=== PATIENT | male | born 1990 | race Caucasian/White ===

== ENCOUNTER 2016-10-22 16:04 | Emergency (ER) | payer OTHER ==
--- NOTE | 2016-10-22 16:10 | EDM.PDOC ---
ED HPI GENERAL MEDICAL PROBLEM - General Chief Complaint: Abdominal Pain Stated Complaint: N&V, SEVERE STOMACH PAINS Time Seen by Provider: 10/22/16 16:10 Source of Information: Reports: Patient - History of Present Illness INITIAL COMMENTS - FREE TEXT/NARRATIVE: HISTORY AND PHYSICAL: History of present illness: [] Patient presents with abdominal pain he states is diffuse 01/02 associated with vomiting too numerous to count, he states there were blood streaks in the vomit after drinking alcohol over the weekend Review of systems: As per history of present illness and below otherwise all systems reviewed and negative. Past medical history: As per history of present illness and as reviewed below otherwise noncontributory. Surgical history: As per history of present illness and as reviewed below otherwise noncontributory. Social history: No reported history of drug or alcohol abuse. Family history: As per history of present illness and as reviewed below otherwise noncontributory. Physical exam: HEENT: Atraumatic, normocephalic, pupils reactive, negative for conjunctival pallor or scleral icterus, mucous membranes moist, throat clear, neck supple, nontender, trachea midline. Lungs: Clear to auscultation, breath sounds equal bilaterally, chest nontender. Heart: S1S2, regular, negative for clicks, rubs, or JVD. Abdomen: Soft, nondistended, nontender. Negative for masses or hepatosplenomegaly. Negative for costovertebral tenderness. Pelvis: Stable nontender. Genitourinary: Deferred. Rectal: Deferred. Extremities: Atraumatic, negative for cords or calf pain. Neurovascular unremarkable. Neuro: Awake, alert, oriented. Cranial nerves II through XII unremarkable. Cerebellum unremarkable. Motor and sensory unremarkable throughout. Exam nonfocal. Diagnostics: [] Lab as below Therapeutics: [] Protonix 80 mg IV 1 L normal saline bolus Zofran 8 mg IV Zofran 8 mg ODT every 8 when necessary #30 no refill Patient offered admission he refuses feels much better and desires to leave Impression: [] Alcohol gastritis Stridor and as Definitive disposition and diagnosis as appropriate pending reevaluation and review of above. abdomen Pain Score (Numeric/FACES): 8 - Related Data Allergies Allergy/AdvReac Type Severity Reaction Status Date / Time No Known Allergies Allergy Verified 10/22/16 16:12 Home Meds: Home Meds . [No Known Home Meds] 10/22/16 [History] Past Medical History HEENT History: Reports: Impaired Vision Cardiovascular History: Reports: None Respiratory History: Reports: None Gastrointestinal History: Reports: None Genitourinary History: Reports: None Musculoskeletal History: Reports: None Neurological History: Reports: None Psychiatric History: Reports: ADHD Endocrine/Metabolic History: Reports: None Hematologic History: Reports: None Immunologic History: Reports: None Oncologic (Cancer) History: Reports: None Dermatologic History: Reports: None - Infectious Disease History Infectious Disease History: Reports: Chicken Pox - Past Surgical History Other Surgical History Comment: Denies Social & Family History - Family History Family Medical History: Unobtainable - Tobacco Use Smoking Status *Q: Current Every Day Smoker Years of Tobacco use: 5 Packs/Tins Daily: 1 - Alcohol Use Days Per Week of Alcohol Use: 7 Number of Drinks Per Day: 12 Total Drinks Per Week: 84 - Recreational Drug Use Recreational Drug Use: Yes Drug Use in Last 12 Months: Yes Recreational Drug Type: Reports: Marijuana/Hashish Recreational Drug Use Frequency: Rarely ED ROS GENERAL - Review of Systems Review Of Systems: ROS reveals no pertinent complaints other than HPI. ED EXAM, GENERAL - Physical Exam Exam: See Below Course - Vital Signs Last Recorded V/S: Last Vital Signs Temp 37.3 C 10/22/16 17:39 Pulse 112 H 10/22/16 17:39 Resp 18 10/22/16 17:39 BP 122/59 L 10/22/16 17:39 Pulse Ox 98 10/22/16 17:39 - Orders/Labs/Meds Orders: Active Orders 24 hr Category Date Time Status Abdomen Pelvis w Cont [CT] Stat Exams 10/22/16 16:18 Taken Labs: Laboratory Tests 10/22/16 10/22/16 10/22/16 Range/Units 16:18 16:18 17:18 WBC 29.23 H (4.0-11.0) K/uL RBC 5.70 (4.50-5.90) M/uL Hgb 18.1 H (13.0-17.0) g/dL Hct 51.7 H (38.0-50.0) % MCV 90.7 (80.0-98.0) fL MCH 31.8 (27.0-32.0) pg MCHC 35.0 (31.0-37.0) g/dL RDW Std Deviation 45.4 (28.0-62.0) fl RDW Coeff of Otilia 14 (11.0-15.0) % Plt Count 394 (150-400) K/uL MPV 10.10 (7.40-12.00) fL Add Manual Diff YES Neutrophils % (Manual) 84 H (48.0-80.0) % Lymphocytes % (Manual) 10 L (16.0-40.0) % Monocytes % (Manual) 6 (0.0-15.0) % Nucleated RBC % 0.0 /100WBC Absolute Seg Neuts 24.6 Lymphocytes # (Manual) 2.9 Monocytes # (Manual) 1.8 Nucleated RBCs # 0 K/uL Sodium 143 (136-146) mmol/L Potassium 3.9 (3.5-5.1) mmol/L Chloride 102 (98-110) mmol/L Carbon Dioxide 20 L (21-31) mmol/L BUN 10 (6.0-23.0) mg/dL Creatinine 0.9 (0.6-1.5) mg/dL Est Cr Clr Drug Dosing 99.93 mL/min Estimated GFR (MDRD) > 60.0 ml/min Glucose 128 H (60-110) mg/dL Calcium 10.2 (8.8-10.8) mg/dL Total Bilirubin 1.1 (0.1-1.5) mg/dL AST 37 (5-40) IU/L ALT 42 (8-54) IU/L Alkaline Phosphatase 69 (40-150) Total Protein 8.5 H (6.0-8.0) g/dL Albumin 5.4 H (3.5-5.0) g/dL Globulin 3.1 (2.0-3.5) g/dL Albumin/Globulin Ratio 1.7 (1.3-2.8) Amylase 103 H (10-90) U/L Lipase 14 (7-80) U/L Urine Color YELLOW Urine Appearance CLEAR Urine pH 7.0 (5.0-8.0) Ur Specific [place] 1.025 (1.001-1.035) Urine Protein 100 (NEGATIVE) mg/dL Urine Glucose (UA) NEGATIVE (NEGATIVE) mg/dL Urine Ketones >=80 (NEGATIVE) mg/dL Urine Occult Blood NEGATIVE (NEGATIVE) Urine Nitrite NEGATIVE (NEGATIVE) Urine Bilirubin NEGATIVE (NEGATIVE) Urine Urobilinogen 0.2 (<2.0) EU/dL Ur Leukocyte Esterase NEGATIVE (NEGATIVE) Urine RBC 0-2 (0-2/HPF) Urine WBC 0-1 (0-5/HPF) Ur Epithelial Cells RARE (NONE-FEW) Urine Bacteria FEW (NEGATIVE) Urine Mucus MODERATE (NONE-MOD) Meds: Medications Discontinued Medications Generic Name Dose Route Start Last Admin Trade Name Freq PRN Reason Stop Dose Admin Sodium Chloride 1,000 mls @ 999 mls/hr 10/22/16 16:14 10/22/16 16:28 Normal Saline IV 10/22/16 17:14 999 mls/hr STAT ONE Administration Iopamidol 100 ml 10/22/16 17:04 10/22/16 17:05 Isovue Multipack-370 (76%) IVPUSH 10/22/16 17:05 100 ml ONETIME STA Administration Ketorolac Tromethamine 30 mg 10/22/16 16:14 10/22/16 16:29 Toradol IVPUSH 10/22/16 16:15 30 mg ONETIME ONE Administration Ondansetron HCl 8 mg 10/22/16 16:14 10/22/16 16:29 Zofran IVPUSH 10/22/16 16:15 8 mg ONETIME ONE Administration Pantoprazole Sodium 80 mg 10/22/16 16:18 10/22/16 16:29 Protonix Iv IVPUSH 10/22/16 16:19 80 mg .BOLUS ONE Administration Departure - Departure Time of Disposition: 19:04 Disposition: Home, Self-Care 01 Condition: fair Clinical Impression: Gastroenteritis - Discharge Information Forms: ED Department Discharge Additional Instructions: Medication as prescribed Return if symptoms persist or worsen Followup with primary care in 2 weeks The following information is given to patients seen in the emergency department who are being discharged to home. This information is to outline your options for follow-up care. We provide all patients seen in our emergency department with a follow-up referral. The need for follow-up, as well as the timing and circumstances, are variable depending upon the specifics of your emergency department visit. If you don't have a primary care physician on staff, we will provide you with a referral. We always advise you to contact your personal physician following an emergency department visit to inform them of the circumstance of the visit and for follow-up with them and/or the need for any referrals to a consulting specialist. The emergency department will also refer you to a specialist when appropriate. This referral assures that you have the opportunity for follow-up care with a specialist. All of these measure are taken in an effort to provide you with optimal care, which includes your follow-up. Under all circumstances we always encourage you to contact your private physician who remains a resource for coordinating your care. When calling for follow-up care, please make the office aware that this follow-up is from your recent emergency room visit. If for any reason you are refused follow-up, please contact the [facility] emergency department at and asked to speak to the emergency department charge nurse. - My Orders Last 24 Hours: My Active Orders 10/22/16 16:18 Abdomen Pelvis w Cont [CT] Stat - Assessment/Plan Last 24 Hours: My Active Orders 10/22/16 16:18 Abdomen Pelvis w Cont [CT] Stat
[2016-10-22] MEDS ORDERED: Ondansetron 4 MG/2 ML SDV IVPUSH ONE (16:14)
[2016-10-22] MEDS ORDERED: Ketorolac 30 MG/ML SDV IVPUSH ONE (16:14)
[2016-10-22] MEDS ORDERED: Sodium Chloride 0.9% 1,000 ML IV ONE (16:14)
[2016-10-22] MEDS ORDERED: Pantoprazole 40 MG Vial IVPUSH ONE (16:18)
[2016-10-22 16:47] LABS: CHLORIDE,CL 102 mmol/L (98-110); SODIUM,NA 143 mmol/L (136-146)
[2016-10-22] MEDS ORDERED: Iopamidol 755 MG/ML 500 ML Multipack Bottle IVPUSH STA (17:04)
[2016-10-22 17:39] VITALS: BP 122/59
--- NOTE | 2016-10-23 10:11 | CT ---
EXAM DATE: 10/22/16 PATIENT'S AGE: 26 Patient: SUBHA SHAW Facility: [place], [place] Site . Site : 1990 Study: CT Abdomen/Pelvis [id number]/30/2017 5:44:40 PM Ordering Physician: Bob Simon Final Report: INDICATION: Abdominal pain and burning. Nausea and vomiting occasionally, especially after drinking water. Technique: Axial intravenously infused CT cuts were performed from above the diaphragm to the inferior pubic rami. Findings: The appendix is not inflamed. The colon is decompressed and there is mild mucosal thickening of the colon although this appears be accentuated due to the lack of colonic distention. The small bowel appears normal. The liver, spleen, pancreas, adrenals and kidneys appear normal. There are no enlarged retroperitoneal or mesenteric lymph nodes. There is no free intraperitoneal air or fluid. The urinary bladder, seminal vesicles and prostate gland appear normal. There are no enlarged iliac or inguinal lymph nodes. There no nodules or masses at the lung bases. Impression are: The colonic mucosa may be somewhat thickened although the findings would be accentuated due to lack of colonic distention. There may be a mild colitis present. Please note that all CT scans at this facility use dose modulation, iterative reconstruction, and/or weight-based dosing when appropriate to reduce radiation dose to as low as reasonably achievable. Dictated by Austin Jj MD @ Oct 22 2016 6:24PM (Electronic Signature) Report Signed by Proxy. [facility]
== END 2016-10-22 19:20 | disposition home or self-care (01) ==
LOC: MW.ED 16:04
DX: K52.9 Noninfective gastroenteritis and colitis, unspecified (principal); F17.210 Nicotine dependence, cigarettes, uncomplicated
CPT/HCPCS: 36415; 74177; 80053; 81001; 82150; 83690; 85025; 96361; 96374; 96375; 99284; C9113; J1885; J2405; J7040; Q9967

== ENCOUNTER 2017-02-07 14:51 | Inpatient (IN) | payer OTHER, SELFPAY ==
[2017-02-07] MEDS ORDERED: Ondansetron 4 MG/2 ML SDV IVPUSH ONE (15:25)
[2017-02-07] MEDS ORDERED: Alum Hydrox/Mag Hydrox/Simeth 15 ML, Metoclopramide 5 MG, Lidocaine 2% 5 ML PO ONE ×3 (15:25)
[2017-02-07] MEDS ORDERED: Pantoprazole 40 MG Vial IVPUSH ONE (15:25)
[2017-02-07] MEDS ORDERED: Sodium Chloride 0.9% 1,000 ML IV ONE ×2 (15:25→19:48)
--- NOTE | 2017-02-07 15:29 | EDM.PDOC ---
ED HPI GENERAL MEDICAL PROBLEM - General Chief Complaint: Gastrointestinal Problem Stated Complaint: VOMITING BLOOD Time Seen by Provider: 02/07/17 15:15 Source of Information: Reports: Patient History Limitations: Reports: No Limitations - History of Present Illness INITIAL COMMENTS - FREE TEXT/NARRATIVE: HISTORY AND PHYSICAL: History of present illness: [Patient is brought to the emergency room by his mother. He has been experiencing generalized abdominal pain, vomiting, and diarrhea which began this morning. Patient has a history of heavily alcohol use. He has a history of gastritis that is induced by heavy alcohol use, was previously seen in the ER for the same symptoms in January 2016 and September 2016. States that he drank a large quantity of whiskey yesterday, too numerous to count. Emesis has been blood-streaked. No blood in his stools. No difficulty urinating. Patient currently lives with his mother. No fever or chills. No headaches or fainting. Denies sore throat runny nose and earaches. No chest pain shortness of breath or difficulty breathing. No cough. No muscle aches or joint pain. Review of systems: As per history of present illness and below otherwise all systems reviewed and negative. Past medical history: As per history of present illness and as reviewed below otherwise noncontributory. Surgical history: As per history of present illness and as reviewed below otherwise noncontributory. Social history: No reported history of drug or alcohol abuse. Family history: As per history of present illness and as reviewed below otherwise noncontributory. Physical exam: Gen.: Is actively vomiting upon presentation to the ER. HEENT: Atraumatic, normocephalic. Oral mucous membranes are pink and mildly dry. Neck supple no lymphadenopathy Lungs: Clear to auscultation, breath sounds equal bilaterally. Heart: S1S2, regular rate and rhythm. No murmur gallop click or rub. Abdomen: Bowel sounds are normoactive throughout. Abdomen is soft and nondistended. Mild generalized tenderness with palpation. Negative for masses guarding and rebound. Negative for costovertebral tenderness. Pelvis: Stable nontender. Genitourinary: Deferred. Rectal: Deferred. Extremities: Atraumatic, negative for cords or calf pain. No swelling or cyanosis to feet or lower legs. Neurovascular unremarkable. Neuro: Awake, alert, oriented. Motor and sensory unremarkable throughout. Exam nonfocal. Diagnostics: [CBC, CMP, amylase, lipase, magnesium, blood cultures 2, lactic acid, urinalysis, urine culture, CT abdomen and pelvis.] Therapeutics: [GI cocktail, Zofran 8 mg IV, 2 L normal saline, Protonix 80 mg IV, phenergan 25mg IM] Impression: Gastritis Leukocytosis Nausea and vomiting] Plan: [Patient's condition and lab results are reviewed with Dr. Celio Hanley who agrees to accept for inpatient treatment. Zosyn 3.375 mg IV is started in the ER prior to transfer. White count 31.7, lactic acid 3.1, amylase 110. Patient and his mother in agreement with hospitalization. All questions are answered and concerns are addressed prior to transfer.] Definitive disposition and diagnosis as appropriate pending reevaluation and review of above. Lower Abdomen Pain Score (Numeric/FACES): 8 - Related Data Allergies Allergy/AdvReac Type Severity Reaction Status Date / Time No Known Allergies Allergy Verified 02/07/17 15:02 Home Meds: Home Meds . [No Known Home Meds] 10/22/16 [History] Past Medical History - Past Health History Medical/Surgical History: Denies Medical/Surgical History HEENT History: Reports: Impaired Vision Cardiovascular History: Reports: None Respiratory History: Reports: None Gastrointestinal History: Reports: None Genitourinary History: Reports: None Musculoskeletal History: Reports: None Neurological History: Reports: None Psychiatric History: Reports: ADHD Endocrine/Metabolic History: Reports: None Hematologic History: Reports: None Immunologic History: Reports: None Oncologic (Cancer) History: Reports: None Dermatologic History: Reports: None - Infectious Disease History Infectious Disease History: Reports: Chicken Pox - Past Surgical History Head Surgeries/Procedures: Reports: None Social & Family History - Family History Family Medical History: Unobtainable - Tobacco Use Smoking Status *Q: Current Some Day Smoker Years of Tobacco use: 9 Packs/Tins Daily: 0.5 Used Tobacco, but Quit: No Second Hand Smoke Exposure: No - Caffeine Use Caffeine Use: Reports: Energy Drinks Caffeine Use Comment: 1 cup daily - Alcohol Use Days Per Week of Alcohol Use: 1 Number of Drinks Per Day: 12 Total Drinks Per Week: 12 - Recreational Drug Use Recreational Drug Use: No Drug Use in Last 12 Months: Yes Recreational Drug Type: Reports: Marijuana/Hashish Recreational Drug Use Frequency: Rarely ED ROS GENERAL - Review of Systems Review Of Systems: ROS reveals no pertinent complaints other than HPI. ED EXAM, GI/ABD - Physical Exam Exam: See Below Course - Vital Signs Last Recorded V/S: Last Vital Signs Temp 98.1 F 02/07/17 20:00 Pulse 93 02/07/17 20:00 Resp 16 02/07/17 20:00 BP 124/82 02/07/17 20:00 Pulse Ox 98 02/07/17 20:00 - Orders/Labs/Meds Orders: Active Orders 24 hr Category Date Time Status Abdomen Pelvis w Cont [CT] Stat Exams 02/07/17 16:51 Taken CULTURE BLOOD [BC] Stat Lab 02/07/17 19:23 Received CULTURE BLOOD [BC] Stat Lab 02/07/17 19:23 Received CULTURE URINE [RM] Stat Lab 02/07/17 20:40 Received Blood Culture x2 Reflex Set [OM.PC] Stat Oth 02/07/17 18:49 Ordered Medication Orders Multivitamins/Minerals 10 ml/Thiamine HCl 100 mg/ Folic Acid 1 mg/ Sodium Chloride 1,011.2 mls @ 150 mls/hr IV DAILY ONE Stop: 02/08/17 02:45 Last Admin: 02/07/17 20:46 Dose: 150 mls/hr Pantoprazole Sodium 40 mg/ (Sodium Chloride) 10 mls @ 300 mls/hr IVPUSH BID GEORGE Piperacillin Sod/Tazobactam (Sod 3.375 gm/ Sodium Chloride) 50 mls @ 100 mls/ hr IV Q6H GEORGE Sodium Chloride (Normal Saline) 1,000 mls @ 125 mls/hr IV ASDIRECTED GEORGE Lorazepam (Ativan) 1 mg IVPUSH Q4H PRN; Protocol PRN Reason: Other Ondansetron HCl (Zofran) 4 mg IVPUSH Q4H PRN PRN Reason: Nausea Labs: Laboratory Tests 02/07/17 02/07/17 02/07/17 Range/Units 16:10 16:10 19:23 WBC 31.70 H (4.0-11.0) K/uL RBC 5.92 H (4.50-5.90) M/uL Hgb 18.7 H (13.0-17.0) g/dL Hct 52.5 H (38.0-50.0) % MCV 88.7 (80.0-98.0) fL MCH 31.6 (27.0-32.0) pg MCHC 35.6 (31.0-37.0) g/dL RDW Std Deviation 43.5 (28.0-62.0) fl RDW Coeff of Otilia 13 (11.0-15.0) % Plt Count 389 (150-400) K/uL MPV 10.10 (7.40-12.00) fL Add Manual Diff YES Neutrophils % (Manual) 89 H (48.0-80.0) % Band Neutrophils % 3 % Lymphocytes % (Manual) 5 L (16.0-40.0) % Monocytes % (Manual) 3 (0.0-15.0) % Nucleated RBC % 0.0 /100WBC Absolute Seg Neuts 28.2 Band Neutrophils # 1.0 Lymphocytes # (Manual) 1.6 Monocytes # (Manual) 1.0 Nucleated RBCs # 0 K/uL Lactate 3.1 H (0.20-2.00) mmol/L Sodium 145 (136-146) mmol/L Potassium 3.6 (3.5-5.1) mmol/L Chloride 101 (98-110) mmol/L Carbon Dioxide 25 (21-31) mmol/L BUN 8 (6.0-23.0) mg/dL Creatinine 1.0 (0.6-1.5) mg/dL Est Cr Clr Drug Dosing 101.02 mL/min Estimated GFR (MDRD) > 60.0 ml/min Glucose 135 H (60-110) mg/dL Calcium 10.7 (8.8-10.8) mg/dL Magnesium 1.6 (1.5-2.3) mEq/L Total Bilirubin 1.1 (0.1-1.5) mg/dL AST 28 (5-40) IU/L ALT 28 (8-54) IU/L Alkaline Phosphatase 86 (40-150) Total Protein 9.0 H (6.0-8.0) g/dL Albumin 5.3 H (3.5-5.0) g/dL Globulin 3.7 H (2.0-3.5) g/dL Albumin/Globulin Ratio 1.4 (1.3-2.8) Amylase 110 H (10-90) U/L Lipase 9 (7-80) U/L Meds: Medications Generic Name Dose Route Start Last Admin Trade Name Joseq PRN Reason Stop Dose Admin Multivitamins/Minerals 10 ml/ 1,011.2 mls @ 150 mls/hr 02/07/17 20:01 20:46 Thiamine HCl 100 mg/ Folic IV 02/08/17 02:45 150 mls/hr Acid 1 mg/ Sodium Chloride DAILY ONE Administration Pantoprazole Sodium 40 mg/ 10 mls @ 300 mls/hr 02/08/17 09:00 Sodium Chloride IVPUSH BID GEORGE Piperacillin Sod/Tazobactam 50 mls @ 100 mls/hr 02/08/17 02:00 Sod 3.375 gm/ Sodium Chloride IV Q6H GEORGE Sodium Chloride 1,000 mls @ 125 mls/hr 02/07/17 20:00 Normal Saline IV ASDIRECTED GEORGE Lorazepam 1 mg 02/07/17 20:04 Ativan IVPUSH Q4H PRN Other Protocol Ondansetron HCl 4 mg 02/07/17 19:58 Zofran IVPUSH Q4H PRN Nausea Discontinued Medications Generic Name Dose Route Start Last Admin Trade Name Juanita PRN Reason Stop Dose Admin Al Hydroxide/Mg Hydroxide 15 0 ml 02/07/17 15:25 02/07/17 16:19 ml/ Metoclopramide HCl 5 mg/ PO 02/07/17 15:26 1 each Lidocaine HCl 5 ml ONETIME ONE Administration Sodium Chloride 1,000 mls @ 999 mls/hr 02/07/17 15:25 02/07/17 16:08 Normal Saline IV 02/07/17 16:25 999 mls/hr STAT ONE Administration Sodium Chloride 1,000 mls @ 999 mls/hr 02/07/17 19:48 02/07/17 19:57 Normal Saline IV 02/07/17 20:48 999 mls/hr .BOLUS ONE Administration Piperacillin Sod/Tazobactam 50 mls @ 100 mls/hr 02/07/17 19:49 02/07/17 19:57 Sod 3.375 gm/ Sodium Chloride IV 02/07/17 20:18 100 mls/hr ONETIME ONE Administration Iopamidol 80 ml 02/07/17 18:32 02/07/17 18:32 Isovue-370 (76%) IVPUSH 02/07/17 18:33 80 ml ONETIME STA Administration Ondansetron HCl 8 mg 02/07/17 15:25 02/07/17 16:08 Zofran IVPUSH 02/07/17 15:26 8 mg ONETIME ONE Administration Pantoprazole Sodium 80 mg 02/07/17 15:25 02/07/17 16:19 Protonix Iv IVPUSH 02/07/17 15:26 80 mg .BOLUS ONE Administration Promethazine HCl 25 mg 02/07/17 17:30 02/07/17 17:52 Phenergan IM 02/07/17 17:31 25 mg ONETIME ONE Administration Departure - Departure Time of Disposition: 19:25 Disposition: Admitted As Inpatient 66 Clinical Impression: Vomiting, Gastritis, Leukocytosis - Discharge Information - My Orders Last 24 Hours: My Active Orders 02/07/17 16:51 Abdomen Pelvis w Cont [CT] Stat - Assessment/Plan Last 24 Hours: My Active Orders 02/07/17 16:51 Abdomen Pelvis w Cont [CT] Stat
[2017-02-07 16:46] LABS: CHLORIDE,CL 101 mmol/L (98-110); SODIUM,NA 145 mmol/L (136-146)
[2017-02-07] MEDS ORDERED: Promethazine 25 MG/ML SDV IM ONE (17:30)
[2017-02-07] MEDS ORDERED: Iopamidol 755 Mg/ML 100 ML Bottle IVPUSH STA (18:32)
[2017-02-07] MEDS ORDERED: Piperacillin/Tazobactam 3.375 GM in Sodium Chloride 0.9% 50 ML IV ONE (19:49)
[2017-02-07] MEDS ORDERED: Ondansetron 4 MG/2 ML SDV IVPUSH PRN (19:58)
[2017-02-07] MEDS ORDERED: MVI, Adult with Vitamin K 10 ML, Thiamine 100 MG, Folic Acid 1 MG in Sodium Chloride 0.... IV ONE ×4 (20:01)
[2017-02-07] MEDS ORDERED: LORazepam 2 MG/ML MDV IVPUSH PRN (20:04)
--- NOTE | 2017-02-07 20:10 | PCM.HP ---
H&P History of Present Illness - General Date of Service: 02/07/17 Admit Problem/Dx: Admission Diagnosis/Problem Admission Diagnosis/Problem Gastritis Source of Information: Patient, Provider, RN - History of Present Illness Initial Comments - Free Text/Narative: He presented to the ER with vomiting post alcohol binge drinking. He had streaks of blood in vomit earlier today. He denies any pain. he denies fever. Lower Abdomen Pain Score (Numeric/FACES): 8 - Related Data Allergies/Adverse Reactions: Allergies Allergy/AdvReac Type Severity Reaction Status Date / Time No Known Allergies Allergy Verified 02/07/17 15:02 Home Medications: Home Meds . [No Known Home Meds] 10/22/16 [History] Past Medical History - Past Health History Medical/Surgical History: Denies Medical/Surgical History HEENT History: Reports: Impaired Vision Cardiovascular History: Reports: None Respiratory History: Reports: None Gastrointestinal History: Reports: None Genitourinary History: Reports: None Musculoskeletal History: Reports: None Neurological History: Reports: None Psychiatric History: Reports: ADHD Endocrine/Metabolic History: Reports: None Hematologic History: Reports: None Immunologic History: Reports: None Oncologic (Cancer) History: Reports: None Dermatologic History: Reports: None - Infectious Disease History Infectious Disease History: Reports: Chicken Pox - Past Surgical History Head Surgeries/Procedures: Reports: None Social & Family History - Family History Family Medical History: Unobtainable - Tobacco Use Smoking Status *Q: Current Some Day Smoker Years of Tobacco use: 9 Packs/Tins Daily: 0.5 Used Tobacco, but Quit: No Second Hand Smoke Exposure: No - Caffeine Use Caffeine Use: Reports: Energy Drinks Caffeine Use Comment: 1 cup daily - Alcohol Use Days Per Week of Alcohol Use: 3 Alcohol Use Comment: He states that he does not drink alcohol daily but he drinks heavy about three days per week. - Recreational Drug Use Recreational Drug Use: No Drug Use in Last 12 Months: Yes Recreational Drug Type: Reports: Marijuana/Hashish Recreational Drug Use Frequency: Rarely H&P Review of Systems - Review of Systems: Review Of Systems: See Below General: Denies: Fever, Chills HEENT: Denies: Ear Pain, Headaches, Sore Throat Pulmonary: Denies: Shortness of Breath, Cough, Sputum Cardiovascular: Denies: Chest Pain, Edema Gastrointestinal: Reports: Hematemesis (as per hpi). Denies: Black Stool, Bloody Stool Genitourinary: Denies: Dysuria, Hematuria Psychiatric: Denies: Confusion Exam - Exam Exam: See Below - Vital Signs Vital Signs: Last Vital Signs Temp 96.3 F 02/07/17 15:12 Pulse 99 02/07/17 15:12 Resp 18 02/07/17 15:12 BP 124/64 02/07/17 15:12 Pulse Ox 96 02/07/17 15:12 Weight: 66 kg - Exam General: Alert, Oriented HEENT: EOMI Neck: Supple, Trachea Midline Lungs: Clear to Auscultation, Normal Respiratory Effort Cardiovascular: Regular Rate, Regular Rhythm GI/Abdominal Exam: Normal Bowel Sounds, Soft, Non-Tender (Male) Exam: Deferred Neurological: Cranial Nerves Intact, Normal Speech Neuro Extensive - Mental Status: Normal Mood/Affect Neuro Extensive - Motor, Sensory, Reflexes: No: Facial palsy (L), Facial Palsy ( R), Hemeplagia (R), Hemeplagia (L) - Patient Data Result Diagrams: 02/07/17 16:10 02/07/17 16:10 *Q Meaningful Use (ADM) - VTE *Q VTE Criteria *Q: - Stroke *Q Stroke Criteria *Q: - AMI *Q AMI Criteria *Q: - Problem List (1) Alcohol abuse SNOMED Code(s): 11621607 ICD Code: F10.10 - ALCOHOL ABUSE, UNCOMPLICATED Status: Acute Current Visit: Yes (2) Leukocytosis SNOMED Code(s): 845482253, 688028022 ICD Code: D72.829 - ELEVATED WHITE BLOOD CELL COUNT, UNSPECIFIED Status: Acute Current Visit: Yes (3) Gastritis SNOMED Code(s): 2228028 ICD Code: K29.70 - GASTRITIS, UNSPECIFIED, WITHOUT BLEEDING Status: Acute Current Visit: No Problem List Initiated/Reviewed/Updated: Yes Orders Last 24hrs: Active Orders 24 hr Category Date Time Status Antiembolic Devices [RC] PER UNIT ROUTINE Care 02/07/17 20:00 Ordered Cardiac Monitoring [RC] . DIRECTED Care 02/07/17 20:04 Ordered Oxygen Therapy [RC] PRN Care 02/07/17 19:58 Ordered VTE/DVT Education [RC] PER UNIT ROUTINE Care 02/07/17 19:58 Ordered Vital Signs [RC] Q4H Care 02/07/17 19:58 Ordered Regular Diet [DIET] Diet 02/07/17 Dinner Ordered CXR [Chest 2V] [CR] Routine Exams 02/07/17 20:04 Ordered CBC WITH AUTO DIFF [HEME] AM Lab 02/08/17 05:11 Ordered CBC WITH AUTO DIFF [HEME] AM Lab 02/09/17 05:11 Ordered CBC WITH AUTO DIFF [HEME] AM Lab 02/10/17 05:11 Ordered COMPREHENSIVE METABOLIC PN,CMP [CHEM] AM Lab 02/08/17 05:11 Ordered COMPREHENSIVE METABOLIC PN,CMP [CHEM] AM Lab 02/09/17 05:11 Ordered COMPREHENSIVE METABOLIC PN,CMP [CHEM] AM Lab 02/10/17 05:11 Ordered MAGNESIUM [CHEM] AM Lab 02/08/17 05:11 Ordered MAGNESIUM [CHEM] AM Lab 02/09/17 05:11 Ordered MAGNESIUM [CHEM] AM Lab 02/10/17 05:11 Ordered LORazepam [Ativan] Med 02/07/17 20:04 Ordered 1 mg IVPUSH Q4H PRN MVI, Adult with Vitamin K [Infuvite Adult] 10 ml Med 02/07/17 20:01 Ordered Thiamine [Vitamin B-1] 100 mg Folic Acid 1 mg Sodium Chloride 0.9% [Normal Saline] 1,000 ml IV DAILY Ondansetron [Zofran] Med 02/07/17 19:58 Ordered 4 mg IVPUSH Q4H PRN Pantoprazole [ProTONIX IV] 40 mg Med 02/08/17 09:00 Ordered Sodium Chloride 0.9% [Normal Saline] 10 ml IVPUSH BID Piperacillin/Tazobactam [Piperacil-Tazobact] 3.375 gm Med 02/07/17 19:49 Active Sodium Chloride 0.9% [Normal Saline] 50 ml IV ONETIME Piperacillin/Tazobactam [Piperacil-Tazobact] 3.375 gm Med 02/08/17 02:00 Ordered Sodium Chloride 0.9% [Normal Saline] 50 ml IV Q6H Sodium Chloride 0.9% @ 125 MLS/HR (1000ml) Med 02/07/17 20:00 Ordered Sodium Chloride 0.9% [Normal Saline] 1,000 ml IV ASDIRECTED Sodium Chloride 0.9% [Normal Saline] 1,000 ml Med 02/07/17 19:48 Active IV .BOLUS Antiembolic Hose [OM.PC] Per Unit Routine Oth 02/07/17 19:59 Ordered Resuscitation Status Routine Resus Stat 02/07/17 19:58 Ordered Medication Orders Sodium Chloride (Normal Saline) 1,000 mls @ 999 mls/hr IV .BOLUS ONE Stop: 02/07/17 20:48 Last Admin: 02/07/17 19:57 Dose: 999 mls/hr Piperacillin Sod/Tazobactam (Sod 3.375 gm/ Sodium Chloride) 50 mls @ 100 mls/ hr IV ONETIME ONE Stop: 02/07/17 20:18 Last Admin: 02/07/17 19:57 Dose: 100 mls/hr Assessment/Plan Comment:: admit see orders Celio Hanley MD
[2017-02-07] MEDS: Nicotine 21 MG/24 Hr Patch TRDERM SCH (22:18)
[2017-02-08] MEDS: Piperacillin/Tazobactam 3.375 GM in Sodium Chloride 0.9% 50 ML IV SCH ×4 (01:09→19:38)
[2017-02-08] MEDS: Sodium Chloride 0.9% 1,000 ML IV SCH ×3 (04:24→23:10)
[2017-02-08 05:18] LABS: CHLORIDE,CL 107 mmol/L (98-110); SODIUM,NA 139 mmol/L (136-146)
[2017-02-08] MEDS: Nicotine 21 MG/24 Hr Patch TRDERM SCH (08:35)
[2017-02-08] MEDS: Pantoprazole 40 MG in Sodium Chloride 0.9% 10 ML IVPUSH SCH ×2 (09:54→20:32)
--- NOTE | 2017-02-08 15:17 | PCM.PN ---
- General Info Date of Service: 02/08/17 Subjective Update: He is eating a little now but has some post prandial upper abdominal pain. - Patient Data Vitals - Most Recent: Last Vital Signs Temp 98.7 F 02/08/17 12:00 Pulse 78 02/08/17 12:00 Resp 16 02/08/17 12:00 BP 133/70 02/08/17 12:00 Pulse Ox 98 02/08/17 12:00 Weight - Most Recent: 66 kg I&O - Last 24 Hours: Intake & Output 02/08/17 02/08/17 02/08/17 06:59 14:59 22:59 Intake Total 1549 60 Output Total 200 Balance 1349 60 Lab Results Last 24 Hours: Laboratory Results - last 24 hr 02/07/17 02/08/17 02/08/17 Range/Units 20:40 04:40 04:40 WBC 22.14 H (4.0-11.0) K/uL RBC 4.78 (4.50-5.90) M/uL Hgb 14.7 (13.0-17.0) g/dL Hct 42.9 (38.0-50.0) % MCV 89.7 (80.0-98.0) fL MCH 30.8 (27.0-32.0) pg MCHC 34.3 (31.0-37.0) g/dL RDW Std Deviation 44.3 (28.0-62.0) fl RDW Coeff of Otilia 13 (11.0-15.0) % Plt Count 309 (150-400) K/uL MPV 10.30 (7.40-12.00) fL Neut % (Auto) 77.3 (48.0-80.0) % Lymph % (Auto) 11.4 L (16.0-40.0) % [place] % (Auto) 11.2 (0.0-15.0) % Eos % (Auto) 0.0 (0.0-7.0) % Baso % (Auto) 0.1 (0.0-1.5) % Neut # (Auto) 17.1 H (1.4-5.7) K/uL Lymph # (Auto) 2.5 H (0.6-2.4) K/uL [place] # (Auto) 2.5 H (0.0-0.8) K/uL Eos # (Auto) 0.0 (0.0-0.7) K/uL Baso # (Auto) 0.0 (0.0-0.1) K/uL Nucleated RBC % 0.0 /100WBC Nucleated RBCs # 0 K/uL Lactate (0.20-2.00) mmol/L Sodium 139 (136-146) mmol/L Potassium 4.1 (3.5-5.1) mmol/L Chloride 107 (98-110) mmol/L Carbon Dioxide 24 (21-31) mmol/L BUN 11 (6.0-23.0) mg/dL Creatinine 0.8 (0.6-1.5) mg/dL Est Cr Clr Drug Dosing 117.17 mL/min Estimated GFR (MDRD) > 60.0 ml/min Glucose 98 (60-110) mg/dL Calcium 9.2 (8.8-10.8) mg/dL Magnesium 1.6 (1.5-2.3) mEq/L Total Bilirubin 1.6 H (0.1-1.5) mg/dL AST 34 (5-40) IU/L ALT 22 (8-54) IU/L Alkaline Phosphatase 60 (40-150) Total Protein 6.1 (6.0-8.0) g/dL Albumin 3.9 (3.5-5.0) g/dL Globulin 2.2 (2.0-3.5) g/dL Albumin/Globulin Ratio 1.8 (1.3-2.8) Urine Color YELLOW Urine Appearance CLEAR Urine pH 8.5 H (5.0-8.0) Ur Specific [place] 1.010 (1.001-1.035) Urine Protein TRACE (NEGATIVE) mg/dL Urine Glucose (UA) NEGATIVE (NEGATIVE) mg/dL Urine Ketones 40 H (NEGATIVE) mg/dL Urine Occult Blood SMALL H (NEGATIVE) Urine Nitrite NEGATIVE (NEGATIVE) Urine Bilirubin NEGATIVE (NEGATIVE) Urine Urobilinogen 0.2 (<2.0) EU/dL Ur Leukocyte Esterase NEGATIVE (NEGATIVE) Urine RBC 0-3 (0-2/HPF) Urine WBC 0-2 (0-5/HPF) Ur Epithelial Cells RARE (NONE-FEW) Urine Bacteria RARE (NEGATIVE) Urine Opiates Screen (NEGATIVE) Ur Oxycodone Screen (NEGATIVE) Urine Methadone Screen (NEGATIVE) Ur Barbiturates Screen (NEGATIVE) Ur Phencyclidine Scrn (NEGATIVE) Ur Amphetamine Screen (NEGATIVE) U Methamphetamines Scrn (NEGATIVE) U Benzodiazepines Scrn (NEGATIVE) U Cocaine Metab Screen (NEGATIVE) U Marijuana (THC) Screen (NEGATIVE) 02/08/17 02/08/17 Range/Units 04:40 05:22 WBC (4.0-11.0) K/uL RBC (4.50-5.90) M/uL Hgb (13.0-17.0) g/dL Hct (38.0-50.0) % MCV (80.0-98.0) fL MCH (27.0-32.0) pg MCHC (31.0-37.0) g/dL RDW Std Deviation (28.0-62.0) fl RDW Coeff of Otilia (11.0-15.0) % Plt Count (150-400) K/uL MPV (7.40-12.00) fL Neut % (Auto) (48.0-80.0) % Lymph % (Auto) (16.0-40.0) % [place] % (Auto) (0.0-15.0) % Eos % (Auto) (0.0-7.0) % Baso % (Auto) (0.0-1.5) % Neut # (Auto) (1.4-5.7) K/uL Lymph # (Auto) (0.6-2.4) K/uL [place] # (Auto) (0.0-0.8) K/uL Eos # (Auto) (0.0-0.7) K/uL Baso # (Auto) (0.0-0.1) K/uL Nucleated RBC % /100WBC Nucleated RBCs # K/uL Lactate 0.8 (0.20-2.00) mmol/L Sodium (136-146) mmol/L Potassium (3.5-5.1) mmol/L Chloride (98-110) mmol/L Carbon Dioxide (21-31) mmol/L BUN (6.0-23.0) mg/dL Creatinine (0.6-1.5) mg/dL Est Cr Clr Drug Dosing mL/min Estimated GFR (MDRD) ml/min Glucose (60-110) mg/dL Calcium (8.8-10.8) mg/dL Magnesium (1.5-2.3) mEq/L Total Bilirubin (0.1-1.5) mg/dL AST (5-40) IU/L ALT (8-54) IU/L Alkaline Phosphatase (40-150) Total Protein (6.0-8.0) g/dL Albumin (3.5-5.0) g/dL Globulin (2.0-3.5) g/dL Albumin/Globulin Ratio (1.3-2.8) Urine Color Urine Appearance Urine pH (5.0-8.0) Ur Specific [place] (1.001-1.035) Urine Protein (NEGATIVE) mg/dL Urine Glucose (UA) (NEGATIVE) mg/dL Urine Ketones (NEGATIVE) mg/dL Urine Occult Blood (NEGATIVE) Urine Nitrite (NEGATIVE) Urine Bilirubin (NEGATIVE) Urine Urobilinogen (<2.0) EU/dL Ur Leukocyte Esterase (NEGATIVE) Urine RBC (0-2/HPF) Urine WBC (0-5/HPF) Ur Epithelial Cells (NONE-FEW) Urine Bacteria (NEGATIVE) Urine Opiates Screen NEGATIVE (NEGATIVE) Ur Oxycodone Screen NEGATIVE (NEGATIVE) Urine Methadone Screen NEGATIVE (NEGATIVE) Ur Barbiturates Screen NEGATIVE (NEGATIVE) Ur Phencyclidine Scrn NEGATIVE (NEGATIVE) Ur Amphetamine Screen NEGATIVE (NEGATIVE) U Methamphetamines Scrn NEGATIVE (NEGATIVE) U Benzodiazepines Scrn NEGATIVE (NEGATIVE) U Cocaine Metab Screen NEGATIVE (NEGATIVE) U Marijuana (THC) Screen POSITIVE (NEGATIVE) Med Orders - Current: Current Medications Pantoprazole Sodium 40 mg/ (Sodium Chloride) 10 mls @ 300 mls/hr IVPUSH BID [facility] Last Admin: 02/08/17 09:54 Dose: 300 mls/hr Piperacillin Sod/Tazobactam (Sod 3.375 gm/ Sodium Chloride) 50 mls @ 100 mls/ hr IV Q6H [facility] Last Admin: 02/08/17 14:00 Dose: 100 mls/hr Sodium Chloride (Normal Saline) 1,000 mls @ 125 mls/hr IV ASDIRECTED [facility] Last Admin: 02/08/17 14:05 Dose: 125 mls/hr Lorazepam (Ativan) 1 mg IVPUSH Q4H PRN; Protocol PRN Reason: Other Nicotine (Habitrol) 21 mg TRDERM DAILY [facility] Last Admin: 02/08/17 08:35 Dose: 21 mg Ondansetron HCl (Zofran) 4 mg IVPUSH Q4H PRN PRN Reason: Nausea Discontinued Medications Al Hydroxide/Mg Hydroxide 15 ml/ Metoclopramide HCl 5 mg/Lidocaine HCl 5 ml 0 ml PO ONETIME ONE Stop: 02/07/17 15:26 Last Admin: 02/07/17 16:19 Dose: 1 each Sodium Chloride (Normal Saline) 1,000 mls @ 999 mls/hr IV STAT ONE Stop: 02/07/17 16:25 Last Admin: 02/07/17 16:08 Dose: 999 mls/hr Sodium Chloride (Normal Saline) 1,000 mls @ 999 mls/hr IV .BOLUS ONE Stop: 02/07/17 20:48 Last Admin: 02/07/17 19:57 Dose: 999 mls/hr Piperacillin Sod/Tazobactam (Sod 3.375 gm/ Sodium Chloride) 50 mls @ 100 mls/ hr IV ONETIME ONE Stop: 02/07/17 20:18 Last Admin: 02/07/17 19:57 Dose: 100 mls/hr Multivitamins/Minerals 10 ml/Thiamine HCl 100 mg/ Folic Acid 1 mg/ Sodium Chloride 1,011.2 mls @ 150 mls/hr IV DAILY ONE Stop: 02/08/17 02:45 Last Infusion: 02/08/17 04:23 Dose: Infused Iopamidol (Isovue-370 (76%)) 80 ml IVPUSH ONETIME STA Stop: 02/07/17 18:33 Last Admin: 02/07/17 18:32 Dose: 80 ml Ondansetron HCl (Zofran) 8 mg IVPUSH ONETIME ONE Stop: 02/07/17 15:26 Last Admin: 02/07/17 16:08 Dose: 8 mg Pantoprazole Sodium (Protonix Iv) 80 mg IVPUSH .BOLUS ONE Stop: 02/07/17 15:26 Last Admin: 02/07/17 16:19 Dose: 80 mg Promethazine HCl (Phenergan) 25 mg IM ONETIME ONE Stop: 02/07/17 17:31 Last Admin: 02/07/17 17:52 Dose: 25 mg - Exam General: Alert, Oriented, Cooperative Neck: Supple Lungs: Normal Respiratory Effort GI/Abdominal Exam: Soft, Non-Tender - Problem List & Annotations (1) Alcohol abuse SNOMED Code(s): 55371844 Code(s): F10.10 - ALCOHOL ABUSE, UNCOMPLICATED Status: Acute Current Visit: Yes (2) Leukocytosis SNOMED Code(s): 249537798, 954612964 Code(s): D72.829 - ELEVATED WHITE BLOOD CELL COUNT, UNSPECIFIED Status: Acute Current Visit: Yes (3) Gastritis SNOMED Code(s): 8235736 Code(s): K29.70 - GASTRITIS, UNSPECIFIED, WITHOUT BLEEDING Status: Acute Current Visit: No (4) Sepsis SNOMED Code(s): 64366574 Code(s): A41.9 - SEPSIS, UNSPECIFIED ORGANISM Status: Acute Current Visit : Yes - Problem List Review Problem List Initiated/Reviewed/Updated: Yes - My Orders Last 24 Hours: My Active Orders 02/07/17 19:58 Oxygen Therapy [RC] PRN Vital Signs [RC] Q4H Ondansetron [Zofran] 4 mg IVPUSH Q4H PRN Resuscitation Status Routine 02/07/17 19:59 Antiembolic Hose [OM.PC] Per Unit Routine 02/07/17 20:00 Antiembolic Devices [RC] Q12H Sodium Chloride 0.9% [Normal Saline] 1,000 ml IV ASDIRECTED 02/07/17 20:04 Cardiac Monitoring [RC] . DIRECTED CXR [Chest 2V] [CR] Routine LORazepam [Ativan] 1 mg IVPUSH Q4H PRN 02/07/17 20:27 CIWAA Assessment [RC] Q4H 02/07/17 21:58 Communication Order [RC] DAILY 02/07/17 22:00 Nicotine [Habitrol] 21 mg TRDERM DAILY 02/07/17 Dinner Regular Diet [DIET] 02/08/17 02:00 Piperacillin/Tazobactam [Piperacil-Tazobact] 3.375 gm Sodium Chloride 0.9% [ Normal Saline] 50 ml IV Q6H 02/08/17 09:00 Pantoprazole [ProTONIX IV] 40 mg Sodium Chloride 0.9% [Normal Saline] 10 ml IVPUSH BID 02/09/17 05:11 CBC WITH AUTO DIFF [HEME] AM COMPREHENSIVE METABOLIC PN,CMP [CHEM] AM MAGNESIUM [CHEM] AM 02/10/17 05:11 CBC WITH AUTO DIFF [HEME] AM COMPREHENSIVE METABOLIC PN,CMP [CHEM] AM MAGNESIUM [CHEM] AM - Plan Plan:: admit see orders Celio Hanley MD 02/08/2017 sepsis suspected. Improving wbc. continue zosyn anticipated discharge on Friday Celio Hanley MD
[2017-02-08] MEDS ORDERED: Morphine 4 MG/ML Syringe IVPUSH PRN (22:23)
[2017-02-08] MEDS: metroNIDAZOLE 250 MG Tab PO SCH (22:37)
[2017-02-09] MEDS: Piperacillin/Tazobactam 3.375 GM in Sodium Chloride 0.9% 50 ML IV SCH ×4 (01:33→19:00)
[2017-02-09] MEDS: metroNIDAZOLE 250 MG Tab PO SCH ×2 (06:26→13:19)
[2017-02-09 06:31] LABS: CHLORIDE,CL 107 mmol/L (98-110); SODIUM,NA 137 mmol/L (136-146)
[2017-02-09] MEDS: Sodium Chloride 0.9% 1,000 ML IV SCH (07:41)
[2017-02-09] MEDS: Pantoprazole 40 MG in Sodium Chloride 0.9% 10 ML IVPUSH SCH (08:13)
[2017-02-09] MEDS: Nicotine 21 MG/24 Hr Patch TRDERM SCH ×2 (08:13→19:17)
--- NOTE | 2017-02-09 11:32 | PCM.DCSUM1 ---
Discharge Summary - Hospital Course Brief History: he was admitted with leukocytosis with wbc over 30 K. He had been drinking and had abdominal pain. - Discharge Data Discharge Date: 02/09/17 Discharge Disposition: Home, Self-Care 01 Condition: Fair - Discharge Diagnosis/Problem(s) (1) Alcohol abuse SNOMED Code(s): 18884441 ICD Code: F10.10 - ALCOHOL ABUSE, UNCOMPLICATED Status: Acute Current Visit: Yes (2) Leukocytosis SNOMED Code(s): 362838635, 462895577 ICD Code: D72.829 - ELEVATED WHITE BLOOD CELL COUNT, UNSPECIFIED Status: Acute Current Visit: Yes (3) Gastritis SNOMED Code(s): 9876140 ICD Code: K29.70 - GASTRITIS, UNSPECIFIED, WITHOUT BLEEDING Status: Acute Current Visit: No (4) Sepsis SNOMED Code(s): 49939760 ICD Code: A41.9 - SEPSIS, UNSPECIFIED ORGANISM Status: Acute Current Visit: Yes - Patient Summary/Data Hospital Course: He was started on zosyn for suspected sepsis of unknown origin. Blood cultures are negative at discharge. He was also started on a protonix drip. He is feeling much better at discharge. I recommended one further day in the hospital but as he desires to go home will discharge home this pm if he is still asymptomatic. His abdominal pain has resolved and he is feeling back to normal. His WBC has come down to 14.2 by the morning of discharge. He was started on flagyl for antibiotic associated diarrhea. His C. dificile test was negative and his diarrhea has resolved at discharge. - Discharge Plan Home Medications: Home Meds . [No Known Home Meds] 10/22/16 [History] Forms: ED Department Discharge Referrals: Chichi Zazueta DO [Primary Care Provider] - - Patient Data Vitals - Most Recent: Last Vital Signs Temp 98.1 F 02/09/17 08:00 Pulse 53 L 02/09/17 08:00 Resp 12 02/09/17 08:00 BP 106/56 L 02/09/17 08:00 Pulse Ox 98 02/09/17 08:00 Weight - Most Recent: 66 kg I&O - Last 24 hours: Intake & Output 02/08/17 02/09/17 02/09/17 22:59 06:59 14:59 Intake Total 610 1450 1050 Output Total 1200 1500 Balance -590 -50 1050 Lab Results - Last 24 hrs: Laboratory Results - last 24 hr 02/09/17 02/09/17 Range/Units 05:18 05:18 WBC 14.20 H (4.0-11.0) K/uL RBC 4.80 (4.50-5.90) M/uL Hgb 14.7 (13.0-17.0) g/dL Hct 43.6 (38.0-50.0) % MCV 90.8 (80.0-98.0) fL MCH 30.6 (27.0-32.0) pg MCHC 33.7 (31.0-37.0) g/dL RDW Std Deviation 44.1 (28.0-62.0) fl RDW Coeff of Otilia 13 (11.0-15.0) % Plt Count 249 (150-400) K/uL MPV 10.80 (7.40-12.00) fL Add Manual Diff YES Neutrophils % (Manual) 77 (48.0-80.0) % Band Neutrophils % 3 % Lymphocytes % (Manual) 14 L (16.0-40.0) % Monocytes % (Manual) 4 (0.0-15.0) % Basophils % (Manual) 2 H (0.0-1.5) % Nucleated RBC % 0.0 /100WBC Absolute Seg Neuts 10.9 Band Neutrophils # 0.4 Lymphocytes # (Manual) 2.0 Monocytes # (Manual) 0.6 Basophils # (Manual) 0 Nucleated RBCs # 0 K/uL Sodium 137 (136-146) mmol/L Potassium 3.7 (3.5-5.1) mmol/L Chloride 107 (98-110) mmol/L Carbon Dioxide 22 (21-31) mmol/L BUN 5 L (6.0-23.0) mg/dL Creatinine 0.7 (0.6-1.5) mg/dL Est Cr Clr Drug Dosing 133.90 mL/min Estimated GFR (MDRD) > 60.0 ml/min Glucose 88 (60-110) mg/dL Calcium 8.8 (8.8-10.8) mg/dL Magnesium 1.3 L (1.5-2.3) mEq/L Total Bilirubin 1.5 (0.1-1.5) mg/dL AST 30 (5-40) IU/L ALT 18 (8-54) IU/L Alkaline Phosphatase 47 (40-150) Total Protein 5.9 L (6.0-8.0) g/dL Albumin 3.5 (3.5-5.0) g/dL Globulin 2.4 (2.0-3.5) g/dL Albumin/Globulin Ratio 1.5 (1.3-2.8) STEFANIE Results - Last 24 hrs: Microbiology 02/07/17 20:40 Urine Culture - Final Urine, Clean Catch No Growth 02/09/17 03:45 Clostridium difficile Toxin A&B (M) - Final Stool / Feces - Stool, Liquid Negative for C.Diff Toxin/AG Med Orders - Current: Current Medications Pantoprazole Sodium 40 mg/ (Sodium Chloride) 10 mls @ 300 mls/hr IVPUSH BID [facility] Last Admin: 02/09/17 08:13 Dose: 300 mls/hr Piperacillin Sod/Tazobactam (Sod 3.375 gm/ Sodium Chloride) 50 mls @ 100 mls/ hr IV Q6H [facility] Last Admin: 02/09/17 07:45 Dose: 100 mls/hr Sodium Chloride (Normal Saline) 1,000 mls @ 125 mls/hr IV ASDIRECTED [facility] Last Admin: 02/09/17 07:41 Dose: 125 mls/hr Lorazepam (Ativan) 1 mg IVPUSH Q4H PRN; Protocol PRN Reason: Other Metronidazole (Metronidazole) 500 mg PO TID [facility] Last Admin: 02/09/17 06:26 Dose: 500 mg Morphine Sulfate (Morphine) 4 mg IVPUSH Q2H PRN PRN Reason: Pain Nicotine (Habitrol) 21 mg TRDERM DAILY [facility] Last Admin: 02/09/17 08:13 Dose: 21 mg Ondansetron HCl (Zofran) 4 mg IVPUSH Q4H PRN PRN Reason: Nausea Discontinued Medications Al Hydroxide/Mg Hydroxide 15 ml/ Metoclopramide HCl 5 mg/Lidocaine HCl 5 ml 0 ml PO ONETIME ONE Stop: 02/07/17 15:26 Last Admin: 02/07/17 16:19 Dose: 1 each Sodium Chloride (Normal Saline) 1,000 mls @ 999 mls/hr IV STAT ONE Stop: 02/07/17 16:25 Last Admin: 02/07/17 16:08 Dose: 999 mls/hr Sodium Chloride (Normal Saline) 1,000 mls @ 999 mls/hr IV .BOLUS ONE Stop: 02/07/17 20:48 Last Admin: 02/07/17 19:57 Dose: 999 mls/hr Piperacillin Sod/Tazobactam (Sod 3.375 gm/ Sodium Chloride) 50 mls @ 100 mls/ hr IV ONETIME ONE Stop: 02/07/17 20:18 Last Admin: 02/07/17 19:57 Dose: 100 mls/hr Multivitamins/Minerals 10 ml/Thiamine HCl 100 mg/ Folic Acid 1 mg/ Sodium Chloride 1,011.2 mls @ 150 mls/hr IV DAILY ONE Stop: 02/08/17 02:45 Last Infusion: 02/08/17 04:23 Dose: Infused Iopamidol (Isovue-370 (76%)) 80 ml IVPUSH ONETIME STA Stop: 02/07/17 18:33 Last Admin: 02/07/17 18:32 Dose: 80 ml Ondansetron HCl (Zofran) 8 mg IVPUSH ONETIME ONE Stop: 02/07/17 15:26 Last Admin: 02/07/17 16:08 Dose: 8 mg Pantoprazole Sodium (Protonix Iv) 80 mg IVPUSH .BOLUS ONE Stop: 02/07/17 15:26 Last Admin: 02/07/17 16:19 Dose: 80 mg Promethazine HCl (Phenergan) 25 mg IM ONETIME ONE Stop: 02/07/17 17:31 Last Admin: 02/07/17 17:52 Dose: 25 mg *Q Meaningful Use (DIS) - VTE *Q VTE Criteria *Q: - Stroke *Q Stroke Criteria *Q: - AMI *Q AMI Criteria *Q:
[2017-02-09 21:06] VITALS: BP 137/80
--- NOTE | 2017-02-10 09:51 | CT ---
EXAM DATE: 02/07/17 PATIENT'S AGE: 26 Patient: SUBHA SHAW Facility: [facility] [place], [place] Site . Site : 1990 Study: CT Abdomen/Pelvis [id number]/15/2017 6:32:10 PM Ordering Physician: Doctor Schreiber Final Report: INDICATION: Abdominal Pain, Vomiting, Diarrhea TECHNIQUE: CT abdomen and pelvis acquired with IV contrast. 80ml Isovue 370, COMPARISON: October 22, 2016 FINDINGS: Lower chest: Unremarkable. Liver: Mild diffuse fatty infiltration of the liver. Spleen: Unremarkable. Pancreas: Unremarkable. Gallbladder and bile ducts: Unremarkable. Kidneys: Unremarkable. Adrenal glands: Unremarkable. GI tract: Unremarkable. Appendix is normal. Vascular structures: Negative. No sign of aneurysm. Lymph nodes: Unremarkable. Miscellaneous: Unremarkable. No free air or significant free fluid. Pelvic Organs: Unremarkable. Bones: Unremarkable for age. IMPRESSION: No acute abnormality of the abdomen and pelvis. Dictated by Fabián Beasley MD @ 02/07/2017 6:58:39 PM Dictated by: Fabián Beasley MD @ 02/07/2017 18:58:53 (Electronic Signature) Report Signed by Proxy. [facility]
--- NOTE | 2017-02-10 10:07 | CR ---
EXAM DATE: 02/07/17 PATIENT'S AGE: 26 Patient: SUBHA SHAW Facility: [place], [place] Site . Site : 1990 Study: XRay Chest [id number]/15/2017 8:43:37 PM Ordering Physician: Dayan Pickens Final Report: INDICATION: LEUKOCYTOSIS CHEST, PA AND LATERAL Upright PA and lateral radiographs of the chest were performed. Comparison: No previous studies are currently available for comparison. The lungs appear clear and there are no pleural effusions. Heart size and pulmonary vasculature appear normal. Visualized bones show no significant findings. IMPRESSION: No acute intrathoracic abnormality identified. CHARIS BOLDEN MD [employer] Dictated by: Darryn Bolden MD @ 02/07/2017 20:56:28 (Electronic Signature) Report Signed by Proxy. [facility]
== END 2017-02-09 20:00 | disposition home or self-care (01) | DRG 872 ==
LOC: MW.ED 14:51 → MW.MS 19:25 → UNDODISIN 02-09 20:00
PROVIDERS: ADMIT Family Medicine; ATTEND Family Medicine
DX: A41.9 Sepsis, unspecified organism (principal); K29.70 Gastritis, unspecified, without bleeding; R19.7 Diarrhea, unspecified; D72.829 Elevated white blood cell count, unspecified; R11.2 Nausea with vomiting, unspecified; F10.10 Alcohol abuse, uncomplicated; F17.200 Nicotine dependence, unspecified, uncomplicated
CPT/HCPCS: 36415; 71020; 71020-26; 74177; 74177-26; 80053; 80305; 81001; 82150; 83605; 83690; 83735; 85025; 87040; 87086; 87324; 96361; 96372; 96374; 96375; 99283; 99285-25; A9270-GY; C9113; J2405; J2543; J2550; J3411; J7040; J7050; Q9967

== ENCOUNTER 2019-12-16 02:42 | Emergency (ER) | payer MEDICAID, OTHER ==
[2019-12-16] MEDS ORDERED: Sodium Chloride 0.9% 10 ML Syringe FLUSH PRN (03:03)
[2019-12-16] MEDS ORDERED: Aspirin 81 MG Tab.Chew PO ONE (03:03)
[2019-12-16] MEDS ORDERED: Sodium Chloride 0.9% 2.5 ML Syringe FLUSH PRN ×2 (03:03)
[2019-12-16] MEDS ORDERED: Sodium Chloride 0.9% 1,000 ML IV ONE (03:03)
[2019-12-16] MEDS ORDERED: LORazepam 2 MG/ML SDV IVPUSH ONE (03:04)
[2019-12-16 03:35] LABS: BLOOD UREA NITROGEN,BUN 11 mg/dL (7.0-18.0); CARBON DIOXIDE,CO2 25.4 mmol/L (21.0-32.0); CHLORIDE,CL 102 mmol/L (98-107); GLUCOSE RANDOM 113 mg/dL (74-106); POTASSIUM,K 3.3 mmol/L (3.5-5.1); SODIUM,NA 141 mmol/L (136-148)
--- NOTE | 2019-12-16 03:48 | EDM.PDOC ---
ED HPI GENERAL MEDICAL PROBLEM - General Chief Complaint: Behavioral/Psych Stated Complaint: STOMACH PAIN, FEELS "WEIRD" Time Seen by Provider: 12/16/19 02:48 - History of Present Illness INITIAL COMMENTS - FREE TEXT/NARRATIVE: History of present illness: Patient presents with anxiety and concerns about bugs crawling under his skin he admits to using meth several hours ago he also had an episode of chest pain with nausea and vomiting x1. He denies any fever chills or other problems he is currently not having chest pain but seems quite anxious and concerned about parasites. He states he is worried he has toxoplasmosis because he has cats at home. He has no symptoms of toxoplasmosis however Review of systems: As per history of present illness and below otherwise all systems reviewed and negative. Past medical history: As per history of present illness and as reviewed below otherwise noncontributory. Surgical history: As per history of present illness and as reviewed below otherwise noncontributory. Social history: No reported history of drug or alcohol abuse. Family history: As per history of present illness and as reviewed below otherwise noncontributory. Physical exam: HEENT: Atraumatic, normocephalic, pupils reactive, negative for conjunctival pallor or scleral icterus, mucous membranes moist, throat clear, neck supple, nontender, trachea midline. Lungs: Clear to auscultation, breath sounds equal bilaterally, chest nontender. Heart: S1S2, regular, negative for clicks, rubs, or JVD. tachycardic at 120 Abdomen: Soft, nondistended, nontender. Negative for masses or hepatosplenomegaly. Negative for costovertebral tenderness. Pelvis: Stable nontender. Genitourinary: Deferred. Rectal: Deferred. Extremities: Atraumatic, negative for cords or calf pain. Neurovascular unremarkable. Neuro: Awake, alert, oriented. Cranial nerves II through XII unremarkable. Cerebellum unremarkable. Motor and sensory unremarkable throughout. Exam nonfocal. Psych: Anxious squirming in his chair and paranoid about parasites. Diagnostics: [] Therapeutics: [] Impression: Methamphetamine intoxication with chest pain [] Plan: Cardiac work-up Ativan and fluids reassess the patient. [] Definitive disposition and diagnosis as appropriate pending reevaluation and review of above. - Related Data Allergies Allergy/AdvReac Type Severity Reaction Status Date / Time No Known Allergies Allergy Verified 12/16/19 02:54 Home Meds: Home Meds Amoxicillin/Clavulanate K [Augmentin 875 MG/125 MG] 1 tab PO Q12HR #14 tablet 02/09/17 [Rx] Omeprazole Magnesium [Prilosec Otc] 20 mg PO DAILY #30 tablet. 02/09/17 [Rx] metroNIDAZOLE 500 mg PO TID #21 tablet 02/09/17 [Rx] Past Medical History - Past Health History Medical/Surgical History: Denies Medical/Surgical History HEENT History: Reports: Impaired Vision Cardiovascular History: Reports: None Respiratory History: Reports: None Gastrointestinal History: Reports: None Genitourinary History: Reports: None Musculoskeletal History: Reports: None Neurological History: Reports: None Psychiatric History: Reports: ADHD Endocrine/Metabolic History: Reports: None Hematologic History: Reports: None Immunologic History: Reports: None Oncologic (Cancer) History: Reports: None Dermatologic History: Reports: None - Infectious Disease History Infectious Disease History: Reports: Chicken Pox - Past Surgical History Head Surgeries/Procedures: Reports: None Social & Family History - Family History Family Medical History: Unobtainable - Tobacco Use Smoking Status *Q: Unknown Ever Smoked - Caffeine Use Caffeine Use: Reports: Energy Drinks Caffeine Use Comment: 1 cup daily - Recreational Drug Use Recreational Drug Type: Reports: Methamphetamine ED ROS GENERAL - Review of Systems Review Of Systems: See Below ED EXAM, GENERAL - Physical Exam Exam: See Below EKG INTERPRETATION EKG Interpretation Comments: EKG normal sinus rhythm rate of 115 bpm otherwise normal EKG read and interpreted by me Course - Vital Signs Text/Narrative:: One-view portable chest read and interpreted by me no acute cardiopulmonary pathology is evident. Patient has improved with some Ativan and fluids. His cardiac work-up is unremarkable we discharged home he is encouraged to stop using methamphetamines Last Recorded V/S: Last Vital Signs Temp 35.9 C L 12/16/19 02:46 Pulse 99 12/16/19 02:46 Resp 16 12/16/19 02:46 BP 157/90 H 12/16/19 02:46 Pulse Ox 99 12/16/19 02:46 - Orders/Labs/Meds Orders: Active Orders 24 hr Category Date Time Status EKG Documentation Completion [RC] STAT Care 12/16/19 03:03 Active Chest 1V Frontal [CR] Stat Exams 12/16/19 03:03 Ordered Sodium Chloride 0.9% [Normal Saline] 1,000 ml Med 12/16/19 03:03 Active IV BOLUS Sodium Chloride 0.9% [Saline Flush] Med 12/16/19 03:03 Active 10 ml FLUSH ASDIRECTED PRN Sodium Chloride 0.9% [Saline Flush] Med 12/16/19 03:03 Active 2.5 ml FLUSH ASDIRECTED PRN Sodium Chloride 0.9% [Saline Flush] Med 12/16/19 03:03 Active 2.5 ml FLUSH ASDIRECTED PRN Saline Lock Insert [OM.PC] Stat Oth 12/16/19 03:03 Ordered Medication Orders Sodium Chloride (Normal Saline) 1,000 mls @ 999 mls/hr IV BOLUS ONE Stop: 12/16/19 04:03 Last Admin: 12/16/19 03:10 Dose: 999 mls/hr Documented by: GATITO Sodium Chloride (Saline Flush) 10 ml FLUSH ASDIRECTED PRN PRN Reason: Keep Vein Open Sodium Chloride (Saline Flush) 2.5 ml FLUSH ASDIRECTED PRN PRN Reason: Keep Vein Open Sodium Chloride (Saline Flush) 2.5 ml FLUSH ASDIRECTED PRN PRN Reason: Keep Vein Open Labs: Laboratory Tests 12/16/19 12/16/19 Range/Units 03:05 03:05 WBC 14.03 H (4.0-11.0) K/uL RBC 5.70 (4.50-5.90) M/uL Hgb 17.5 H (13.0-17.0) g/dL Hct 50.9 H (38.0-50.0) % MCV 89.3 (80.0-98.0) fL MCH 30.7 (27.0-32.0) pg MCHC 34.4 (31.0-37.0) g/dL RDW Std Deviation 44.1 (28.0-62.0) fl RDW Coeff of Otilia 14 (11.0-15.0) % Plt Count 341 (150-400) K/uL MPV 9.80 (7.40-12.00) fL Neut % (Auto) 63.6 (48.0-80.0) % Lymph % (Auto) 23.4 (16.0-40.0) % [place] % (Auto) 10.5 (0.0-15.0) % Eos % (Auto) 2.2 (0.0-7.0) % Baso % (Auto) 0.3 (0.0-1.5) % Neut # (Auto) 8.9 H (1.4-5.7) K/uL Lymph # (Auto) 3.3 H (0.6-2.4) K/uL [place] # (Auto) 1.5 H (0.0-0.8) K/uL Eos # (Auto) 0.3 (0.0-0.7) K/uL Baso # (Auto) 0.0 (0.0-0.1) K/uL Nucleated RBC % 0.0 /100WBC Nucleated RBCs # 0 K/uL Sodium 141 (136-148) mmol/L Potassium 3.3 L (3.5-5.1) mmol/L Chloride 102 (98-107) mmol/L Carbon Dioxide 25.4 (21.0-32.0) mmol/L BUN 11 (7.0-18.0) mg/dL Creatinine 0.9 (0.8-1.3) mg/dL Est Cr Clr Drug Dosing 108.78 mL/min Estimated GFR (MDRD) > 60.0 ml/min Glucose 113 H (74-106) mg/dL Calcium 9.5 (8.5-10.1) mg/dL Total Bilirubin 1.5 H (0.2-1.0) mg/dL AST 43 H (15-37) IU/L ALT 77 H (14-63) IU/L Alkaline Phosphatase 87 (46-116) U/L Troponin I < 0.050 (0.000-0.056) ng/mL Total Protein 8.4 H (6.4-8.2) g/dL Albumin 4.5 (3.4-5.0) g/dL Globulin 3.9 (2.6-4.0) g/dL Albumin/Globulin Ratio 1.2 (0.9-1.6) Meds: Medications Generic Name Dose Route Start Last Admin Trade Name Freq PRN Reason Stop Dose Admin Sodium Chloride 1,000 mls @ 999 mls/hr 12/16/19 03:03 12/16/19 03:10 Normal Saline IV 12/16/19 04:03 999 mls/hr BOLUS ONE Administration Sodium Chloride 10 ml 12/16/19 03:03 Saline Flush FLUSH ASDIRECTED PRN Keep Vein Open Sodium Chloride 2.5 ml 12/16/19 03:03 Saline Flush FLUSH ASDIRECTED PRN Keep Vein Open Sodium Chloride 2.5 ml 12/16/19 03:03 Saline Flush FLUSH ASDIRECTED PRN Keep Vein Open Discontinued Medications Generic Name Dose Route Start Last Admin Trade Name Juanita PRN Reason Stop Dose Admin Aspirin 324 mg 12/16/19 03:03 12/16/19 03:14 Aspirin PO 12/16/19 03:04 324 mg ONETIME ONE Administration Lorazepam 1 mg 12/16/19 03:04 12/16/19 03:11 Ativan IVPUSH 12/16/19 03:05 1 mg ONETIME ONE Administration Departure - Departure Time of Disposition: 03:47 Disposition: Home, Self-Care 01 Condition: Good Clinical Impression: Methamphetamine intoxication, Chest pain - Discharge Information *PRESCRIPTION DRUG MONITORING PROGRAM REVIEWED*: Not Applicable *COPY OF PRESCRIPTION DRUG MONITORING REPORT IN PATIENT KATLYN: Not Applicable Instructions: Nonspecific Chest Pain, Adult, Stimulant Use Disorder- Methamphetamines Referrals: Chichi Zazueta DO [Primary Care Provider] - Forms: ED Department Discharge Additional Instructions: The following information is given to patients seen in the emergency department who are being discharged to home. This information is to outline your options for follow-up care. We provide all patients seen in our emergency department with a follow-up referral. The need for follow-up, as well as the timing and circumstances, are variable depending upon the specifics of your emergency department visit. If you don't have a primary care physician on staff, we will provide you with a referral. We always advise you to contact your personal physician following an emergency department visit to inform them of the circumstance of the visit and for follow-up with them and/or the need for any referrals to a consulting specialist. The emergency department will also refer you to a specialist when appropriate. This referral assures that you have the opportunity for follow-up care with a specialist. All of these measure are taken in an effort to provide you with optimal care, which includes your follow-up. Under all circumstances we always encourage you to contact your private physician who remains a resource for coordinating your care. When calling for follow-up care, please make the office aware that this follow-up is from your recent emergency room visit. If for any reason you are refused follow-up, please contact the [facility] Emergency Department at and asked to speak to the emergency department charge nurse. [facility] - Primary Care [address], [place] [address] [facility] [address] [place] [id number] Sepsis Event Note (ED) - Evaluation Sepsis Screening Result: No Definite Risk - Focused Exam Vital Signs: Vital Signs Temp Pulse Resp BP Pulse Ox 12/16/19 02:46 35.9 C L 99 16 157/90 H 99 - My Orders Last 24 Hours: My Active Orders 12/16/19 03:03 EKG Documentation Completion [RC] STAT Chest 1V Frontal [CR] Stat Sodium Chloride 0.9% [Normal Saline] 1,000 ml IV BOLUS Sodium Chloride 0.9% [Saline Flush] 10 ml FLUSH ASDIRECTED PRN Sodium Chloride 0.9% [Saline Flush] 2.5 ml FLUSH ASDIRECTED PRN Sodium Chloride 0.9% [Saline Flush] 2.5 ml FLUSH ASDIRECTED PRN Saline Lock Insert [OM.PC] Stat - Assessment/Plan Last 24 Hours: My Active Orders 12/16/19 03:03 EKG Documentation Completion [RC] STAT Chest 1V Frontal [CR] Stat Sodium Chloride 0.9% [Normal Saline] 1,000 ml IV BOLUS Sodium Chloride 0.9% [Saline Flush] 10 ml FLUSH ASDIRECTED PRN Sodium Chloride 0.9% [Saline Flush] 2.5 ml FLUSH ASDIRECTED PRN Sodium Chloride 0.9% [Saline Flush] 2.5 ml FLUSH ASDIRECTED PRN Saline Lock Insert [OM.PC] Stat
--- NOTE | 2019-12-16 04:21 | CR ---
INDICATION: Chest pain. COMPARISON: None available. FINDINGS: An erect single view of the chest was obtained at 0324 hours. The lungs are clear. No focal or diffuse infiltrates are present. The heart is normal in size. The mediastinum is normal in appearance. There is minimal scoliosis of the mid thoracic spine convex towards the left. IMPRESSION: No active disease seen in the chest. Dictated by Austin Berry MD @ Dec 16 2019 4:19AM Signed by Dr. Austin Berry @ Dec 16 2019 4:20AM
[2019-12-16 04:25] VITALS: BP 122/79; PULSE 98
== END 2019-12-16 04:10 | disposition home or self-care (01) ==
LOC: MW.ED 02:42
DX: R07.9 Chest pain, unspecified (principal); F15.129 Other stimulant abuse with intoxication, unspecified; R11.2 Nausea with vomiting, unspecified
CPT/HCPCS: 36415; 71045; 80053; 84484; 85025; 93005; 96361; 96374; 99285; A9270; J2060; J7030

== ENCOUNTER 2020-03-18 19:44 | Emergency (ER) | payer MEDICAID ==
--- NOTE | 2020-03-18 19:55 | EDM.PDOC ---
ED HPI GENERAL MEDICAL PROBLEM - General Stated Complaint: SICK Time Seen by Provider: 03/18/20 19:46 Source of Information: Reports: Patient History Limitations: Reports: No Limitations - History of Present Illness INITIAL COMMENTS - FREE TEXT/NARRATIVE: Male presents with rash in the genitals and lower back, he thinks they are from scabies. His PCP has been prescribing steroid cream for. Patient denies fever, chills, headache, chest pain, shortness of breath, abdominal pain, focal numbness or weakness. He notes last meth use was in November. ROS: A 10-point review of systems, other than pertinent positives and negatives as stated per HPI, is otherwise negative Past medical history: No additional pertinent history Past Surgical history: No additional pertinent history Social history: No additional pertinent history Family history: No additional pertinent history PHYSICAL EXAM General: AOx4, GCS = 15, No distress HEENT: dry mucous membrane Neck: supple, no meningismus, no Kernig or Brudzinski Cardiac: S1S2 RRR Respiratory: CTAB, no crackles or rales, no wheezing Abdomen: Soft, nontender, no rebound or guarding, nondistended, no pulsatile mass. Back: nontender Skin: No erythema or rash noted in the perineum or in the lower back. Musculoskeletal: NVI distally, no deformity Neuro: No focal deficits, CN 2 - 12 WNL. - Related Data Allergies Allergy/AdvReac Type Severity Reaction Status Date / Time No Known Allergies Allergy Verified 12/16/19 02:54 Home Meds: Home Meds metroNIDAZOLE 500 mg PO TID #21 tablet 02/09/17 [Rx] diphenhydrAMINE [Benadryl] 25 mg PO Q6HR PRN #20 cap 03/18/20 [Rx] Past Medical History - Past Health History Medical/Surgical History: Denies Medical/Surgical History HEENT History: Reports: Impaired Vision Cardiovascular History: Reports: None Respiratory History: Reports: None Gastrointestinal History: Reports: None Genitourinary History: Reports: None Musculoskeletal History: Reports: None Neurological History: Reports: None Psychiatric History: Reports: ADHD Endocrine/Metabolic History: Reports: None Hematologic History: Reports: None Immunologic History: Reports: None Oncologic (Cancer) History: Reports: None Dermatologic History: Reports: None - Infectious Disease History Infectious Disease History: Reports: Chicken Pox - Past Surgical History Head Surgeries/Procedures: Reports: None Social & Family History - Family History Family Medical History: Unobtainable - Caffeine Use Caffeine Use: Reports: Energy Drinks Caffeine Use Comment: 1 cup daily ED ROS GENERAL - Review of Systems Review Of Systems: See Below (see dictation) ED EXAM, SKIN/RASH Exam: See Below (see dictation) Course - Re-Assessments/Exams Free Text/Narrative Re-Assessment/Exam: 03/18/20 19:52 Patient exhibits normal vital signs and has a normal gait on road test. I advised the patient to return to the ER for reevaluation if symptoms worsened, including fever, worsening pain, or any other worrisome symptoms. I instructed the patient to follow up with their PCP within 2-3 days. MEDICAL DECISION MAKING: I reviewed the patients past medical records, lab and radiographic findings. I discussed the case with the patient. My differential diagnosis included: Delusional parasitosis. Methamphetamine use. Scabies. Departure - Departure Time of Disposition: 19:53 Disposition: Home, Self-Care 01 Condition: Good Clinical Impression: Rash - Discharge Information *PRESCRIPTION DRUG MONITORING PROGRAM REVIEWED*: Not Applicable *COPY OF PRESCRIPTION DRUG MONITORING REPORT IN PATIENT KATLYN: Not Applicable Prescriptions: diphenhydrAMINE [Benadryl] 25 mg PO Q6HR PRN #20 cap PRN Reason: Rash Instructions: Rash, Adult Additional Instructions: The need for follow-up, as well as the timing and circumstances, are variable depending upon the specifics of your emergency department visit. If you don't have a primary care physician on staff, we will provide you with a referral. We always advise you to contact your personal physician following an emergency department visit to inform them of the circumstance of the visit and for follow-up with them and/or the need for any referrals to a consulting specialist. The emergency department will also refer you to a specialist when appropriate. This referral assures that you have the opportunity for follow-up care with a specialist. All of these measure are taken in an effort to provide you with optimal care, which includes your follow-up. Under all circumstances we always encourage you to contact your private physic dagoberto who remains a resource for coordinating your care. When calling for follow- up care, please make the office aware that this follow-up is from your recent emergency room visit. If for any reason you are refused follow-up, please contact the [facility] Emergency Department at and asked to speak to the emergency department charge nurse. If you do not have a primary care doctor, please follow up with the clinics below within 3-[address] Joshua Feldre - Dermatology [facility] [address] [place] [address], [address] [place] [address]
[2020-03-18 19:58] VITALS: BP 142/87; PULSE 112
== END 2020-03-18 20:05 | disposition home or self-care (01) ==
LOC: MW.ED 19:44
DX: R21 Rash and other nonspecific skin eruption (principal)
CPT/HCPCS: 99282

== ENCOUNTER 2020-06-19 03:12 | Emergency (ER) | payer MEDICAID ==
[2020-06-19] MEDS ORDERED: Sodium Chloride 0.9% 10 ML Syringe FLUSH PRN (03:23)
[2020-06-19] MEDS ORDERED: Sodium Chloride 0.9% 2.5 ML Syringe FLUSH PRN (03:23)
[2020-06-19] MEDS ORDERED: Ondansetron 4 MG/2 ML SDV IVPUSH ONE (03:24)
[2020-06-19] MEDS ORDERED: Morphine 4 MG/ML Syringe IVPUSH ONE (03:24)
--- NOTE | 2020-06-19 03:26 | EDM.PDOC ---
ED HPI GENERAL MEDICAL PROBLEM - General Chief Complaint: Abdominal Pain Stated Complaint: LEFT SIDE PAIN/BACK PAIN Time Seen by Provider: 06/19/20 03:20 - History of Present Illness INITIAL COMMENTS - FREE TEXT/NARRATIVE: 29-year-old male with minimal past history of ADHD and substance abuse in the past who is presenting with 9 out of 10 severe left lower quadrant abdominal pain. The pain started as a more moderate left flank pain before migrating to the left lower quadrant and becoming more severe woke him up from sleep just prior to arrival. No nausea or vomiting no dysuria or hematuria no prior abdominal surgeries. No fevers or chills. No testicular pain. LLQ Pain Score (Numeric/FACES): 9 - Related Data Allergies Allergy/AdvReac Type Severity Reaction Status Date / Time No Known Allergies Allergy Verified 03/18/20 19:53 Home Meds: Home Meds Dextroamphetamine/Amphetamine [Adderall 20 mg Tablet] 23 mg PO DAILY 06/19/20 [History] Past Medical History - Past Health History Medical/Surgical History: Denies Medical/Surgical History HEENT History: Reports: Impaired Vision Cardiovascular History: Reports: None Respiratory History: Reports: None Gastrointestinal History: Reports: None Genitourinary History: Reports: None Musculoskeletal History: Reports: None Neurological History: Reports: None Psychiatric History: Reports: ADHD Endocrine/Metabolic History: Reports: None Hematologic History: Reports: None Immunologic History: Reports: None Oncologic (Cancer) History: Reports: None Dermatologic History: Reports: None - Infectious Disease History Infectious Disease History: Reports: Chicken Pox - Past Surgical History Head Surgeries/Procedures: Reports: None Social & Family History - Family History Family Medical History: Unobtainable - Caffeine Use Caffeine Use: Reports: Energy Drinks Caffeine Use Comment: 1 cup daily ED ROS GENERAL - Review of Systems Review Of Systems: See Below Free Text/Narrative/Comment: General: No fever. Skin: No rash. Eyes: No vision problems. ENT: No sore throat. Neck: No neck stiffness. Respiratory: No shortness of breath. Cardiac: No chest pain. Gastrointestinal: Per HPI Urinary: No dysuria. Musculoskeletal: No myalgias/arthralgias. Neurologic: No headache. ED EXAM, GENERAL - Physical Exam Exam: See Below Free Text/Narrative:: General Appearance: No acute distress, appears comfortable Skin: No rash HEENT: Normocephalic/atraumatic, sclera anicteric, mucous membranes moist Neck: Normal range of motion Chest and Lungs: Bilateral breath sounds, clear to auscultation Cardiovascular: Regular rate and rhythm, no murmur Abdomen: Soft, non-tender Back: Normal Musculoskeletal: No edema or tenderness Neurologic: Awake, alert, no obvious deficits, moving all extremities Psychiatric: Appropriate, cooperative Course - Vital Signs Last Recorded V/S: Last Vital Signs Temp 97.0 F 06/19/20 03:23 Pulse 79 06/19/20 04:19 Resp 18 06/19/20 04:19 BP 121/73 06/19/20 04:19 Pulse Ox 97 06/19/20 04:19 - Orders/Labs/Meds Orders: Active Orders 24 hr Category Date Time Status Sodium Chloride 0.9% [Saline Flush] Med 06/19/20 03:23 Active 10 ml FLUSH ASDIRECTED PRN Sodium Chloride 0.9% [Saline Flush] Med 06/19/20 03:23 Active 2.5 ml FLUSH ASDIRECTED PRN Saline Lock Insert [OM.PC] Stat Oth 06/19/20 03:23 Ordered Medication Orders Sodium Chloride (Saline Flush) 10 ml FLUSH ASDIRECTED PRN PRN Reason: Keep Vein Open Sodium Chloride (Saline Flush) 2.5 ml FLUSH ASDIRECTED PRN PRN Reason: Keep Vein Open Labs: Laboratory Tests 06/19/20 06/19/20 06/19/20 Range/Units 03:15 03:15 03:15 WBC 16.43 H (4.0-11.0) K/uL RBC 5.67 (4.50-5.90) M/uL Hgb 17.3 H (13.0-17.0) g/dL Hct 50.9 H (38.0-50.0) % MCV 89.8 (80.0-98.0) fL MCH 30.5 (27.0-32.0) pg MCHC 34.0 (31.0-37.0) g/dL RDW Std Deviation 42.8 (28.0-62.0) fl RDW Coeff of Otilia 13 (11.0-15.0) % Plt Count 310 (150-400) K/uL MPV 10.90 (7.40-12.00) fL Neut % (Auto) 76.0 (48.0-80.0) % Lymph % (Auto) 15.3 L (16.0-40.0) % [place] % (Auto) 8.0 (0.0-15.0) % Eos % (Auto) 0.5 (0.0-7.0) % Baso % (Auto) 0.2 (0.0-1.5) % Neut # (Auto) 12.5 H (1.4-5.7) K/uL Lymph # (Auto) 2.5 H (0.6-2.4) K/uL [place] # (Auto) 1.3 H (0.0-0.8) K/uL Eos # (Auto) 0.1 (0.0-0.7) K/uL Baso # (Auto) 0.0 (0.0-0.1) K/uL Nucleated RBC % 0.0 /100WBC Nucleated RBCs # 0 K/uL Sodium 137 (136-148) mmol/L Potassium 3.7 (3.5-5.1) mmol/L Chloride 99 (98-107) mmol/L Carbon Dioxide 26.6 (21.0-32.0) mmol/L BUN 12 (7.0-18.0) mg/dL Creatinine 0.9 (0.8-1.3) mg/dL Est Cr Clr Drug Dosing 108.78 mL/min Estimated GFR (MDRD) > 60.0 ml/min Glucose 108 H (74-106) mg/dL Calcium 9.4 (8.5-10.1) mg/dL Total Bilirubin 1.2 H (0.2-1.0) mg/dL AST 24 (15-37) IU/L ALT 33 (14-63) IU/L Alkaline Phosphatase 86 (46-116) U/L Total Protein 7.7 (6.4-8.2) g/dL Albumin 4.1 (3.4-5.0) g/dL Globulin 3.6 (2.6-4.0) g/dL Albumin/Globulin Ratio 1.1 (0.9-1.6) Lipase 51 L (73-393) U/L Urine Color YELLOW Urine Appearance SLT CLOUDY Urine pH 5.5 (5.0-8.0) Ur Specific [place] >= 1.030 (1.001-1.035) Urine Protein NEGATIVE (NEGATIVE) mg/dL Urine Glucose (UA) NEGATIVE (NEGATIVE) mg/dL Urine Ketones 40 H (NEGATIVE) mg/dL Urine Occult Blood NEGATIVE (NEGATIVE) Urine Nitrite NEGATIVE (NEGATIVE) Urine Bilirubin SMALL H (NEGATIVE) Urine Urobilinogen 0.2 (<2.0) EU/dL Ur Leukocyte Esterase NEGATIVE (NEGATIVE) U Hyaline Cast (Auto) 0-2 (0-2/LPF) Urine RBC 0-2 (0-2/HPF) Urine WBC 0-4 (0-5/HPF) Ur Epithelial Cells RARE (NONE-FEW) Urine Bacteria FEW (NEGATIVE) Urine Mucus LIGHT (NONE-MOD) Meds: Medications Generic Name Dose Route Start Last Admin Trade Name Freq PRN Reason Stop Dose Admin Sodium Chloride 10 ml 06/19/20 03:23 Saline Flush FLUSH ASDIRECTED PRN Keep Vein Open Sodium Chloride 2.5 ml 06/19/20 03:23 Saline Flush FLUSH ASDIRECTED PRN Keep Vein Open Discontinued Medications Generic Name Dose Route Start Last Admin Trade Name Freq PRN Reason Stop Dose Admin Hydromorphone HCl 0.5 mg 06/19/20 04:24 06/19/20 04:32 Dilaudid IVPUSH 06/19/20 04:25 0.5 mg ONETIME ONE Administration Lactated Ringer's 1,000 mls @ 999 mls/hr 06/19/20 03:36 06/19/20 03:51 Ringers, Lactated IV 06/19/20 04:36 999 mls/hr .BOLUS ONE Administration Ketorolac Tromethamine 15 mg 06/19/20 04:24 06/19/20 04:28 Toradol IVPUSH 06/19/20 04:25 Not Given ONETIME ONE Ketorolac Tromethamine 15 mg 06/19/20 04:27 06/19/20 04:31 Toradol IVPUSH 06/19/20 04:28 15 mg NOW STA Administration Morphine Sulfate 4 mg 06/19/20 03:24 06/19/20 03:29 Morphine IVPUSH 06/19/20 03:25 4 mg ONETIME ONE Administration Ondansetron HCl 4 mg 06/19/20 03:24 06/19/20 03:29 Zofran IVPUSH 06/19/20 03:25 4 mg ONETIME ONE Administration Departure - Departure Time of Disposition: 05:11 Disposition: Home, Self-Care 01 Condition: Good Clinical Impression: Renal colic on left side - Discharge Information *PRESCRIPTION DRUG MONITORING PROGRAM REVIEWED*: Not Applicable *COPY OF PRESCRIPTION DRUG MONITORING REPORT IN PATIENT KATLYN: Not Applicable Instructions: Renal Colic, [id number] Referrals: Chichi Zazueta DO [Primary Care Provider] - 1 Week Forms: ED Department Discharge Additional Instructions: Your CT scan demonstrated a very very small kidney stone on your left side. I believe this was the cause of your severe pain tonight. It is likely that you will pass the stone without any further symptoms. However I encourage you to take three 200 mg [id number] ibuprofen tablets at a time every 8 hours with food for the next 2 days to help with any residual inflammation and pain. If your pain again become severe and intolerable if you develop a fever or have any other new or concerning symptoms I encourage you to return to the emergency department. Otherwise please follow-up with your primary care doctor. The following information is given to patients seen in the emergency department who are being discharged to home. This information is to outline your options for follow-up care. We provide all patients seen in our emergency department with a follow-up referral. The need for follow-up, as well as the timing and circumstances, are variable depending upon the specifics of your emergency department visit. If you don't have a primary care physician on staff, we will provide you with a referral. We always advise you to contact your personal physician following an emergency department visit to inform them of the circumstance of the visit and for follow-up with them and/or the need for any referrals to a consulting specialist. The emergency department will also refer you to a specialist when appropriate. This referral assures that you have the opportunity for follow-up care with a specialist. All of these measure are taken in an effort to provide you with optimal care, which includes your follow-up. Under all circumstances we always encourage you to contact your private physician who remains a resource for coordinating your care. When calling for follow-up care, please make the office aware that this follow-up is from your recent emergency room visit. If for any reason you are refused follow-up, please contact the [facility] Emergency Department at and asked to speak to the emergency department charge nurse. Sepsis Event Note (ED) - Focused Exam Vital Signs: Vital Signs Temp Pulse Resp BP Pulse Ox 06/19/20 04:19 79 18 121/73 97 06/19/20 03:30 82 128/82 06/19/20 03:23 97.0 F 97 18 143/84 H 98 - My Orders Last 24 Hours: My Active Orders 06/19/20 03:23 Sodium Chloride 0.9% [Saline Flush] 10 ml FLUSH ASDIRECTED PRN Sodium Chloride 0.9% [Saline Flush] 2.5 ml FLUSH ASDIRECTED PRN Saline Lock Insert [OM.PC] Stat - Assessment/Plan Last 24 Hours: My Active Orders 06/19/20 03:23 Sodium Chloride 0.9% [Saline Flush] 10 ml FLUSH ASDIRECTED PRN Sodium Chloride 0.9% [Saline Flush] 2.5 ml FLUSH ASDIRECTED PRN Saline Lock Insert [OM.PC] Stat Assessment:: Otherwise well 29-year-old male with minimal past history presenting with severe left lower quadrant abdominal pain with no significant tenderness on exam. Denies testicular pain and no mechanism for testicular torsion at this point. I would favor renal colic. Diverticulitis considered as well but felt less likely appendicitis likewise felt less likely. Patient without signs of sepsis. Morphine Zofran for symptoms initiated. CBC CMP urinalysis and CT abdomen pelvis are pending to further evaluate. Final disposition pending response to therapy and results of above. 0510: Labs demonstrate significant hemoconcentration given the urine and the rising hemoglobin I don't believe the leukocytosis to represent an acute infective process as urinalysis is without signs of infection. Renal function is good. CT scan demonstrates a number of very small stones. The very small finding in the distal left ureter likely represents the culprit kidney stone though it is very small his symptoms are very consistent with kidney stone he has no other signs of pathology on the scan. Patient had complete resolution of his symptoms after a dose of Toradol and 0.5 mg of Dilaudid. Given this I'm hopeful that he passed the stone however return precautions were discussed and understood given how small the stone was I don't see indication for urgent urology referral at this time and patient was instructed to follow-up with his [facility] doctor.
[2020-06-19] MEDS ORDERED: Lactated Ringers 1,000 ML IV ONE (03:36)
[2020-06-19 03:48] LABS: BLOOD UREA NITROGEN,BUN 12 mg/dL (7.0-18.0); CARBON DIOXIDE,CO2 26.6 mmol/L (21.0-32.0); CHLORIDE,CL 99 mmol/L (98-107); GLUCOSE RANDOM 108 mg/dL (74-106); LIPASE 51 U/L (73-393); POTASSIUM,K 3.7 mmol/L (3.5-5.1); SODIUM,NA 137 mmol/L (136-148)
--- NOTE | 2020-06-19 04:18 | CT ---
INDICATION: Left flank and lower quadrant pain TECHNIQUE: CT abdomen and pelvis without contrast. COMPARISON: None available FINDINGS: Lower chest: Unremarkable. Liver: Unremarkable. Spleen: Unremarkable. Pancreas: Unremarkable. Gallbladder and bile ducts: An apparent small ill-defined density in the gallbladder could represent sludge, poorly calcified gallstones or artifact. Adrenal glands: Unremarkable. Kidneys: A partially duplicated left renal collecting system. No hydronephrosis. Several small nonobstructive left renal calcifications measuring up to 2 mm. An apparent miniscule density in the region of the distal left ureter on image 128 of series 201 which could be artifactual, without ureteral dilatation or periurethral changes. GI tract: Unremarkable. Appendix is normal. Vascular structures: Unremarkable. Lymph nodes: Unremarkable. Miscellaneous: No significant free fluid or free air. Pelvic Organs: Unremarkable. A contracted bladder. Bones: A seven transitional lumbosacral anatomy on the right. Disc osteophyte complexes in the lower thoracic spine, narrowing the central canal. IMPRESSION: No obstructive uropathy. Small nonobstructive left renal calcifications. An apparent miniscule density in the region of the distal left ureter could be artifactual, without ureteral dilatation. Correlate with urinalysis. Please note that all CT scans at this facility use dose modulation, iterative reconstruction, and/or weight-based dosing when appropriate to reduce radiation dose to as low as reasonably achievable. Dictated by Nahid Melton MD @ Jun 19 2020 4:06AM Signed by Dr. Nahid Melton @ Jun 19 2020 4:17AM
[2020-06-19] MEDS ORDERED: Ketorolac 30 MG/ML SDV IVPUSH ONE (04:24)
[2020-06-19] MEDS ORDERED: HYDROmorphone 1 MG/ML Syringe IVPUSH ONE (04:24)
[2020-06-19] MEDS ORDERED: Ketorolac 15 MG/ML SDV IVPUSH STA (04:27)
[2020-06-19 05:10] VITALS: BP 120/69; PULSE 74
== END 2020-06-19 05:20 | disposition home or self-care (01) ==
LOC: MW.ED 03:12
DX: N23 Unspecified renal colic (principal)
CPT/HCPCS: 36415; 74176; 80053; 81001; 83690; 85025; 96374; 96375; 99284; J1170; J1885; J2270; J2405; J7120

== ENCOUNTER 2023-10-04 21:22 | Emergency (ER) | payer MEDICAID ==
[2023-10-04] MEDS: Ondansetron 4 MG/2 ML SDV IVPUSH ONE (23:23)
[2023-10-04] MEDS: Famotidine 20 MG/2 ML SDV IVPUSH ONE (23:23)
[2023-10-04] MEDS: Ketorolac 30 MG/ML SDV IVPUSH ONE (23:23)
[2023-10-04] MEDS: Sodium Chloride 0.9% 1,000 ML IV ONE (23:24)
[2023-10-04] MEDS: Sodium Chloride 0.9% 2.5 ML Syringe FLUSH PRN (23:24)
[2023-10-04] MEDS: Sodium Chloride 0.9% 10 ML Syringe FLUSH PRN (23:24)
[2023-10-04 23:30] LABS: BASOPHILS ABSOLUTE AUTO 0.05 K/uL (0.00-0.20); BASOPHILS PERCENT AUTO 0.3 % (0.0-1.0); EOSINOPHILS ABSOLUTE AUTO 0.13 K/uL (0.00-0.45); EOSINOPHILS PERCENT AUTO 0.9 % (0.0-6.0); HEMATOCRIT 43.5 % (42.0-52.0); HEMOGLOBIN 14.7 g/dL (14.0-18.0); IMMATURE GRAN ABSOLUTE AUTO 0.18 K/uL (0.00-0.05); IMMATURE GRAN PERCENT AUTO 1.2 % (0.0-0.4); LYMPHOCYTES ABSOLUTE AUTO 0.98 K/uL (1.00-4.80); LYMPHOCYTES PERCENT AUTO 6.7 % (24.0-44.0); MEAN CORPUSCULAR HEMOGLOBIN 31.7 pg (28.0-32.0); MEAN CORPUSCULAR HGB CONC 33.8 g/dL (32.0-36.0); MEAN CORPUSCULAR VOLUME 93.8 fL (83.0-99.0); MEAN PLATELET VOLUME 9.9 fL (9.4-12.4); MONOCYTES ABSOLUTE AUTO 1.13 K/uL (0.00-0.80); MONOCYTES PERCENT AUTO 7.7 % (0.0-8.0); NEUTROPHILS ABSOLUTE AUTO 12.22 K/uL (1.80-7.70); NEUTROPHILS PERCENT AUTO 83.2 % (41.0-71.0); PLATELET COUNT,PLT 221 K/uL (150-400); RED BLOOD CELL COUNT 4.64 M/uL (4.52-5.90); WHITE BLOOD CELL COUNT,WBC 14.69 K/uL (3.9-11.3)
[2023-10-04 23:54] LABS: A/G RATIO 1.1 (0.9-1.6); ALBUMIN 3.3 g/dL (3.4-5.0); BILIRUBIN TOTAL 0.6 mg/dL (0.2-1.0); CALCIUM 8.5 mg/dL (8.5-10.1); CARBON DIOXIDE,CO2 29.9 mmol/L (21.0-32.0); CREATININE 0.8 mg/dL (0.8-1.3); EST CRCL DRUG DOSING (CG) 109.97 mL/min; POTASSIUM,K 3.7 mmol/L (3.5-5.1); PROTEIN TOTAL,TP 6.3 g/dL (6.4-8.2)
[2023-10-05 01:59] VITALS: BP 110/64; PULSE 73
== END 2023-10-05 01:59 | disposition home or self-care (01) ==
LOC: MW.ED 21:22
DX: R42 Dizziness and giddiness (principal); R10.11 Right upper quadrant pain; R11.10 Vomiting, unspecified; D72.829 Elevated white blood cell count, unspecified; Z79.899 Other long term (current) drug therapy
CPT/HCPCS: 36415; 76705; 80053; 83690; 84484; 85025; 93005; 96361; 96374; 96375; 99284; J1885; J2405; J3490; J7030; 93010